=== PATIENT | female | born 1970 | race Two or more races ===

== ENCOUNTER 2021-05-01 08:00 | Outpatient (CLI) | payer OTHER ==
[~2021-05-01 08:00] MED LIST: COZAAR50 MG PO; FORTAMET1000 MG PO; NEURONTIN800 MG PO; SINGULAIR 10MG10 MG PO; SYNTHROID88 MCG PO; TOPROL XL25 MG PO; TRAMADOL HCL50 MG PO; VITAMIN D-32000 UNIT PO; XANAX1 MG PO
== END 2021-05-01 08:30 | disposition home or self-care (01) ==
LOC: PPH VACUNA 08:00
PROVIDERS: ATTEND Emergency Medicine Pediatric Emergency Medicine
DX: Z23 Encounter for immunization (principal)

== ENCOUNTER → 2021-08-10 10:19 | Outpatient (CLI) | payer OTHER | END | disposition home or self-care (01) | LOC: LAB 10:19 | PROVIDERS: ATTEND Internal Medicine Geriatric Medicine | DX: D50.9 Iron deficiency anemia, unspecified (principal); E03.9 Hypothyroidism, unspecified; E78.2 Mixed hyperlipidemia; E11.9 Type 2 diabetes mellitus without complications; E56.8 Deficiency of other vitamins; N39.0 Urinary tract infection, site not specified; Z12.11 Encounter for screening for malignant neoplasm of colon; R19.5 Other fecal abnormalities; E55.9 Vitamin D deficiency, unspecified; N19 Unspecified kidney failure; Z20.822 Contact with and (suspected) exposure to COVID-19 ==

== ENCOUNTER → 2021-12-05 08:04 | Outpatient (CLI) | payer OTHER | END | disposition home or self-care (01) | LOC: LAB 08:04 | PROVIDERS: ATTEND Internal Medicine Geriatric Medicine | DX: D50.9 Iron deficiency anemia, unspecified (principal); E03.9 Hypothyroidism, unspecified; E78.2 Mixed hyperlipidemia; I11.9 Hypertensive heart disease without heart failure; E56.8 Deficiency of other vitamins; N39.0 Urinary tract infection, site not specified; Z12.11 Encounter for screening for malignant neoplasm of colon; E55.9 Vitamin D deficiency, unspecified; N19 Unspecified kidney failure; E11.9 Type 2 diabetes mellitus without complications; R80.9 Proteinuria, unspecified; K92.1 Melena; C18.9 Malignant neoplasm of colon, unspecified ==

== ENCOUNTER 2021-12-12 08:41 | Outpatient (CLI) | payer OTHER | END 2021-12-12 08:43 | disposition home or self-care (01) | LOC: MAMO-SONO 08:41 | PROVIDERS: ATTEND Internal Medicine Geriatric Medicine | DX: Z12.31 Encounter for screening mammogram for malignant neoplasm of breast (principal); C50.919 Malignant neoplasm of unspecified site of unspecified female breast; N63.0 Unspecified lump in unspecified breast; N64.4 Mastodynia; N60.11 Diffuse cystic mastopathy of right breast; N60.12 Diffuse cystic mastopathy of left breast ==

== ENCOUNTER → 2021-12-25 | Outpatient (CLI) | payer OTHER | END | disposition home or self-care (01) | LOC: TOM 09:11 | PROVIDERS: ATTEND Anesthesiology Pain Medicine | DX: M54.6 Pain in thoracic spine (principal); M47.896 Other spondylosis, lumbar region ==

== ENCOUNTER 2022-04-24 10:36 | Outpatient (CLI) | payer OTHER | END 2022-04-24 10:37 | disposition home or self-care (01) | LOC: LAB 10:36 | PROVIDERS: ATTEND Internal Medicine Geriatric Medicine | DX: D50.9 Iron deficiency anemia, unspecified (principal); E03.9 Hypothyroidism, unspecified; E78.2 Mixed hyperlipidemia; I11.9 Hypertensive heart disease without heart failure; E56.8 Deficiency of other vitamins; N39.0 Urinary tract infection, site not specified; Z12.11 Encounter for screening for malignant neoplasm of colon; R19.5 Other fecal abnormalities; E55.9 Vitamin D deficiency, unspecified; N19 Unspecified kidney failure; E11.9 Type 2 diabetes mellitus without complications ==

== ENCOUNTER → 2022-04-24 | Outpatient (CLI) | payer OTHER | END | disposition home or self-care (01) | LOC: PPH VACUNA 11:50 | PROVIDERS: ATTEND Emergency Medicine Pediatric Emergency Medicine | DX: Z23 Encounter for immunization (principal) ==

== ENCOUNTER 2022-05-02 12:29 | Emergency (ER) | payer OTHER ==
[~2022-05-02] VITALS: Ht 175.3 cm; Wt 117.9 kg
== END 2022-05-02 17:46 | disposition home or self-care (01) ==
LOC: ER 12:29
DX: N39.0 Urinary tract infection, site not specified (principal); I10 Essential (primary) hypertension; E03.9 Hypothyroidism, unspecified; Z88.6 Allergy status to analgesic agent; Z88.8 Allergy status to other drugs, medicaments and biological substances

== ENCOUNTER 2022-09-14 11:03 | Outpatient (CLI) | payer OTHER | END 2022-09-14 11:10 | disposition home or self-care (01) | LOC: LAB 11:03 | PROVIDERS: ATTEND Internal Medicine Hematology & Oncology | DX: D50.8 Other iron deficiency anemias (principal); D55.0 Anemia due to glucose-6-phosphate dehydrogenase [G6PD] deficiency; I10 Essential (primary) hypertension; R74.02 Elevation of levels of lactic acid dehydrogenase [LDH]; K76.89 Other specified diseases of liver; E55.9 Vitamin D deficiency, unspecified; D57.3 Sickle-cell trait; D51.1 Vitamin B12 deficiency anemia due to selective vitamin B12 malabsorption with proteinuria; M79.7 Fibromyalgia; E11.40 Type 2 diabetes mellitus with diabetic neuropathy, unspecified; E03.8 Other specified hypothyroidism; J45.998 Other asthma; M51.86 Other intervertebral disc disorders, lumbar region; M50.00 Cervical disc disorder with myelopathy, unspecified cervical region; G47.33 Obstructive sleep apnea (adult) (pediatric); D50.0 Iron deficiency anemia secondary to blood loss (chronic); K62.5 Hemorrhage of anus and rectum; E11.65 Type 2 diabetes mellitus with hyperglycemia ==

== ENCOUNTER 2022-12-18 10:02 | Outpatient (CLI) | payer OTHER | END 2022-12-18 10:23 | disposition home or self-care (01) | LOC: LAB 10:02 | PROVIDERS: ATTEND Internal Medicine Hematology & Oncology | DX: E11.21 Type 2 diabetes mellitus with diabetic nephropathy (principal); N39.9 Disorder of urinary system, unspecified; D64.89 Other specified anemias; Z13.220 Encounter for screening for lipoid disorders; N25.89 Other disorders resulting from impaired renal tubular function; E11.69 Type 2 diabetes mellitus with other specified complication; R19.5 Other fecal abnormalities; E03.8 Other specified hypothyroidism; J45.991 Cough variant asthma ==

== ENCOUNTER 2022-12-18 12:20 | Outpatient (CLI) | payer OTHER | END 2022-12-18 12:30 | disposition home or self-care (01) | LOC: SONOGRAMA 12:20 | PROVIDERS: ATTEND Internal Medicine Endocrinology, Diabetes & Metabolism | DX: E04.8 Other specified nontoxic goiter (principal) ==

== ENCOUNTER 2022-12-30 12:33 | Outpatient (CLI) | payer OTHER | END 2022-12-30 12:45 | disposition home or self-care (01) | LOC: MAMO-SONO 12:33 | PROVIDERS: ATTEND Specialist | DX: M77.31 Calcaneal spur, right foot (principal); Z12.31 Encounter for screening mammogram for malignant neoplasm of breast; N60.39 Fibrosclerosis of unspecified breast ==

== ENCOUNTER 2023-02-18 23:18 | Emergency (ER) | payer OTHER ==
[~2023-02-18] VITALS: Ht 175.3 cm; Wt 108.9 kg
[2023-02-19] MEDS ORDERED: OZEMPIC1 MG/0.71 SQ (00:08)
[2023-02-19] MEDS ORDERED: PIOGLITAZONE HC30 MG PO (00:09)
[2023-02-19 01:59] LABS: URINE APPEARANCE Clear; URINE BILIRRUBIN Negative (NEGATIVE); URINE BLOOD Negative; URINE COLOR Yellow; URINE GLUCOSE Negative (NEGATIVE); URINE LEUKOCYTE Negative; URINE NITRATE Negative; URINE PROTEIN Negative (NEGATIVE); URINE UROBILINOGEN 0.2 E.U./dl
[2023-02-19 02:03] LABS: URINE BACTERIA 11.3 uL (0.0-1933); URINE EPITHELIAL CELLS 3.8 uL (0.0-38.8)
[2023-02-19 02:15] LABS: HEMATOCRIT 34.4 % (36.0-45.00); HEMOGLOBIN 11.2 g/dL (12.0-15.00); MEAN CELL VOLUME 83.3 fL (80.00-100.00); MEAN CORPUSCULAR HEMOGLOBIN 27.2 pg (27.00-32.0); MEAN CORPUSCULAR HGB CONC 32.6 g/dl (32.0-36.0); PLATELET COUNT 232 K/uL (150-450); RED BLOOD COUNT 4.13 M/uL (4.00-6.00); RED CELL DISTRIBUTION WIDTH 13.8 % (11.5-14.5)
[2023-02-19 02:16] LABS: URINE RBC 0.7 uL (0.0-20.8)
[2023-02-19 02:22] LABS: INR 1.17; PROTHROMBIN TIME 12.1 SECONDS (9.0-11.5)
[2023-02-19 02:26] LABS: ALBUMIN 3.8 gm/dL (3.4-5.0); BILIRUBIN TOTAL 0.29 mg/dL (0.3-1.2); CREATININE SERUM 0.81 mg/dL (0.55-1.02); GFR 74.84; POTASSIUM 3.91 mEq/L (3.5-5.1); TOTAL PROTEIN 7.8 gm/dL (6.4-8.2)
[2023-02-19] MEDS ORDERED: ALBUTEROL2.5 MG/3 M IH (04:09)
[2023-02-19] MEDS ORDERED: BUDESONIDE0.5 MG/2 M IH (04:09)
[2023-02-19] MEDS ORDERED: ZYNCOF 20-400120 ML PO (04:09)
[2023-02-19] MEDS ORDERED: DOLOGESIC-DF 51 EACH PO (04:09)
[2023-02-19] MEDS ORDERED: OSEL75CA PO (04:09)
[2023-02-19] MEDS ORDERED: PHENAGIL TABLE1 EACH PO (04:09)
== END 2023-02-19 04:29 ==
LOC: ER 23:18
PROVIDERS: General Practice
DX: J10.1 Influenza due to other identified influenza virus with other respiratory manifestations (principal); J45.998 Other asthma; Z88.6 Allergy status to analgesic agent; Z88.8 Allergy status to other drugs, medicaments and biological substances; Z20.822 Contact with and (suspected) exposure to COVID-19

== ENCOUNTER → 2023-06-12 09:26 | Outpatient (CLI) | payer OTHER ==
[~2023-06-12 09:26] MED LIST changes: +ALBUTEROL2.5 MG/3 M IH; +BUDESONIDE0.5 MG/2 M IH; +DOLOGESIC-DF 51 EACH PO; +OSEL75CA PO; +OZEMPIC1 MG/0.71 SQ; +PHENAGIL TABLE1 EACH PO; +PIOGLITAZONE HC30 MG PO; +ZYNCOF 20-400120 ML PO
[2023-06-12 11:29] LABS: ALBUMIN 3.7 gm/dL (3.4-5.0); BILIRUBIN TOTAL 0.3 mg/dL (0.3-1.2); CALCIUM 9.4 mg/dL (8.5-10.1); CHOL HDL RATIO 3.9 (0-5.0); CREATININE SERUM 0.6 mg/dL (0.55-1.02); GFR 105.82; GLOBULINA 3.3 G/DL (2.4-3.5); POTASSIUM 4.16 mEq/L (3.5-5.1)
[2023-06-12 11:32] LABS: URINE APPEARANCE Clear; URINE BILIRRUBIN Negative (NEGATIVE); URINE BLOOD Negative; URINE COLOR Yellow; URINE GLUCOSE Negative (NEGATIVE); URINE LEUKOCYTE Negative; URINE NITRATE Negative; URINE PROTEIN Negative (NEGATIVE); URINE UROBILINOGEN 0.2 E.U./dl
[2023-06-12 11:33] LABS: URINE BACTERIA 358.9 uL (0.0-1933); URINE EPITHELIAL CELLS 7.4 uL (0.0-38.8); URINE RBC 5.6 uL (0.0-20.8); URINE WBC 6.9 uL (0.0-23.2)
== END | disposition home or self-care (01) ==
LOC: LAB 09:26
PROVIDERS: ATTEND Internal Medicine Endocrinology, Diabetes & Metabolism
DX: E11.65 Type 2 diabetes mellitus with hyperglycemia (principal); E78.00 Pure hypercholesterolemia, unspecified

== ENCOUNTER 2023-07-10 13:29 | Outpatient (CLI) | payer OTHER | END 2023-07-10 13:36 | disposition home or self-care (01) | LOC: RAD 13:29 | PROVIDERS: ATTEND Specialist | DX: J45.991 Cough variant asthma (principal) ==

== ENCOUNTER 2023-07-24 09:39 | Outpatient (CLI) | payer OTHER | END 2023-07-24 09:43 | disposition home or self-care (01) | LOC: RAD 09:39 | PROVIDERS: ATTEND Orthopaedic Surgery | DX: M25.561 Pain in right knee (principal); Z88.6 Allergy status to analgesic agent; Z88.8 Allergy status to other drugs, medicaments and biological substances ==

== ENCOUNTER 2023-08-06 11:59 | Outpatient (CLI) | payer OTHER | END 2023-08-06 12:00 | disposition home or self-care (01) | LOC: NUCLEAR 11:59 | PROVIDERS: ATTEND Orthopaedic Surgery | DX: M81.0 Age-related osteoporosis without current pathological fracture (principal) ==

== ENCOUNTER 2024-04-19 08:33 | Outpatient (CLI) | payer OTHER ==
[2024-04-19 09:47] LABS: HEMATOCRIT 36.7 % (36.0-45.00); HEMOGLOBIN 11.9 g/dL (12.0-15.00); MEAN CELL VOLUME 84.5 fL (80.00-100.00); MEAN CORPUSCULAR HEMOGLOBIN 27.5 pg (27.00-32.0); MEAN CORPUSCULAR HGB CONC 32.5 g/dl (32.0-36.0); PLATELET COUNT 239 K/uL (150-450); RED BLOOD COUNT 4.35 M/uL (4.00-6.00); RED CELL DISTRIBUTION WIDTH 13.6 % (11.5-14.5)
[2024-04-19 10:42] LABS: URINE APPEARANCE Clear; URINE BILIRRUBIN Negative (NEGATIVE); URINE BLOOD Negative; URINE COLOR Yellow; URINE GLUCOSE Negative (NEGATIVE); URINE KETONE Negative (NEGATIVE); URINE LEUKOCYTE Negative; URINE NITRATE Negative; URINE PROTEIN Negative (NEGATIVE); URINE UROBILINOGEN 0.2 E.U./dl
[2024-04-19 10:46] LABS: URINE BACTERIA 559.3 uL (0.0-1933); URINE EPITHELIAL CELLS 14.2 uL (0.0-38.8); URINE RBC 22.9 uL (0.0-20.8); URINE WBC 13.4 uL (0.0-23.2)
[2024-04-19 10:51] LABS: CREATININE URINE RANDOM 84.4 MG/DL (30-125)
[2024-04-19 11:18] LABS: ALBUMIN 3.8 gm/dL (3.4-5.0); BILIRUBIN TOTAL 0.36 mg/dL (0.3-1.2); CALCIUM 9.3 mg/dL (8.5-10.1); CHOL HDL RATIO 3.1 (0-5.0); CREATININE SERUM 0.59 mg/dL (0.55-1.02); GFR 107.46; GLOBULINA 3.2 G/DL (2.4-3.5); POTASSIUM 4.11 mEq/L (3.5-5.1); TSH 0.802 uIU/mL (0.358-3.74)
== END 2024-04-19 08:44 | disposition home or self-care (01) ==
LOC: LAB 08:33
PROVIDERS: ATTEND Specialist
DX: E11.21 Type 2 diabetes mellitus with diabetic nephropathy (principal); Z13.220 Encounter for screening for lipoid disorders; E11.69 Type 2 diabetes mellitus with other specified complication; E03.8 Other specified hypothyroidism; N39.9 Disorder of urinary system, unspecified; D64.89 Other specified anemias; N25.81 Secondary hyperparathyroidism of renal origin

== ENCOUNTER 2024-04-19 10:26 | Outpatient (CLI) | payer OTHER | END 2024-04-19 10:37 | disposition home or self-care (01) | LOC: MAMO-SONO 10:26 | PROVIDERS: ATTEND Internal Medicine Hematology & Oncology | DX: N63.0 Unspecified lump in unspecified breast (principal); N64.4 Mastodynia; D55.0 Anemia due to glucose-6-phosphate dehydrogenase [G6PD] deficiency; D57.3 Sickle-cell trait; D51.1 Vitamin B12 deficiency anemia due to selective vitamin B12 malabsorption with proteinuria; M79.7 Fibromyalgia; E03.8 Other specified hypothyroidism; I10 Essential (primary) hypertension; J45.998 Other asthma; M51.86 Other intervertebral disc disorders, lumbar region; M50.00 Cervical disc disorder with myelopathy, unspecified cervical region; G47.33 Obstructive sleep apnea (adult) (pediatric); K62.5 Hemorrhage of anus and rectum; Z12.31 Encounter for screening mammogram for malignant neoplasm of breast ==

== ENCOUNTER 2024-05-03 14:12 | Outpatient (CLI) | payer OTHER | END 2024-05-03 14:21 | disposition home or self-care (01) | LOC: RAD 14:12 | PROVIDERS: ATTEND Specialist | DX: M16.0 Bilateral primary osteoarthritis of hip (principal); R31.9 Hematuria, unspecified; N20.0 Calculus of kidney ==

== ENCOUNTER 2024-07-15 13:50 | Outpatient (CLI) | payer OTHER | END 2024-07-15 13:56 | disposition home or self-care (01) | LOC: TOM 13:50 | PROVIDERS: ATTEND Specialist | DX: G91.2 (Idiopathic) normal pressure hydrocephalus (principal) ==

== ENCOUNTER 2024-07-15 14:46 | Emergency (ER) | payer OTHER ==
[~2024-07-15] VITALS: Ht 167.6 cm; Wt 102.1 kg
[2024-07-15 17:20] LABS: HEMATOCRIT 40.6 % (36.0-45.00); HEMOGLOBIN 13.5 g/dL (12.0-15.00); MEAN CORPUSCULAR HEMOGLOBIN 27.7 pg (27.00-32.0); MEAN CORPUSCULAR HGB CONC 33.4 g/dl (32.0-36.0); PLATELET COUNT 293 K/uL (150-450); RED BLOOD COUNT 4.88 M/uL (4.00-6.00); RED CELL DISTRIBUTION WIDTH 13.6 % (11.5-14.5)
[2024-07-15 18:13] LABS: BILIRUBIN TOTAL 0.27 mg/dL (0.3-1.2); CALCIUM 9.7 mg/dL (8.5-10.1); CREATININE SERUM 0.77 mg/dL (0.55-1.02); GFR 79.03; GLOBULINA 4.1 G/DL (2.4-3.5); POTASSIUM 4.09 mEq/L (3.5-5.1); TOTAL PROTEIN 8.1 gm/dL (6.4-8.2)
== END 2024-07-15 19:07 | disposition home or self-care (01) ==
LOC: ER 14:48
DX: F41.9 Anxiety disorder, unspecified (principal); I10 Essential (primary) hypertension; E11.9 Type 2 diabetes mellitus without complications; Z79.84 Long term (current) use of oral hypoglycemic drugs; Z88.6 Allergy status to analgesic agent; Z88.8 Allergy status to other drugs, medicaments and biological substances

== ENCOUNTER 2024-09-07 08:00 | Outpatient (CLI) | payer OTHER ==
[2024-09-10 09:07] LABS: CA 125 8.1 U/mL (0.0-38.1); CA 15-3 13.7 U/mL (0.0-25.0)
== END 2024-09-07 23:00 | disposition home or self-care (01) ==
LOC: LAB 08:00
PROVIDERS: ATTEND Internal Medicine Hematology & Oncology
DX: D55.0 Anemia due to glucose-6-phosphate dehydrogenase [G6PD] deficiency (principal); D57.3 Sickle-cell trait; D51.1 Vitamin B12 deficiency anemia due to selective vitamin B12 malabsorption with proteinuria; M79.7 Fibromyalgia; E11.40 Type 2 diabetes mellitus with diabetic neuropathy, unspecified; E03.8 Other specified hypothyroidism; I10 Essential (primary) hypertension; J45.998 Other asthma; M51.86 Other intervertebral disc disorders, lumbar region; M50.00 Cervical disc disorder with myelopathy, unspecified cervical region; G47.33 Obstructive sleep apnea (adult) (pediatric); D50.0 Iron deficiency anemia secondary to blood loss (chronic); K62.5 Hemorrhage of anus and rectum; D50.8 Other iron deficiency anemias; R74.02 Elevation of levels of lactic acid dehydrogenase [LDH]; K76.89 Other specified diseases of liver; E55.9 Vitamin D deficiency, unspecified; C50.919 Malignant neoplasm of unspecified site of unspecified female breast; C56.9 Malignant neoplasm of unspecified ovary; M35.3 Polymyalgia rheumatica; E03.9 Hypothyroidism, unspecified; E11.21 Type 2 diabetes mellitus with diabetic nephropathy; N39.9 Disorder of urinary system, unspecified; E11.65 Type 2 diabetes mellitus with hyperglycemia

== ENCOUNTER 2024-11-17 07:08 | Outpatient (CLI) | payer OTHER ==
[2024-11-18 11:12] LABS: ANTI-CENTROMERE AB <0.2 AI (0.0-0.9); DNA AB DOUBLE STRABDED < 1 IU/mL (0-9)
== END 2024-11-17 07:14 | disposition home or self-care (01) ==
LOC: LAB 07:08
PROVIDERS: ATTEND Internal Medicine Rheumatology
DX: M06.09 Rheumatoid arthritis without rheumatoid factor, multiple sites (principal)

== ENCOUNTER → 2024-11-17 07:21 | Outpatient (CLI) | payer OTHER | END | disposition home or self-care (01) | LOC: NUCLEAR 06:00 | PROVIDERS: ATTEND Internal Medicine Rheumatology | DX: M06.4 Inflammatory polyarthropathy (principal) | CPT/HCPCS: 78315; A9503 ==